=== PATIENT | male | born 1990 ===

== ENCOUNTER 2023-06-20 18:02 | Inpatient (IN) | payer OTHER ==
[2023-06-20 20:54] LABS: BASOPHILS % (AUTO) 0.4 % (0.0-2.0); EOSINOPHILS % (AUTO) 0.5 % (1.0-6.0); HEMATOCRIT 40.4 % (41-53); HEMOGLOBIN 13.5 g/dL (13.5-17.5); LYMPHOCYTES # (AUTO) 2.2 K/uL (1.0-4.8); LYMPHOCYTES % (AUTO) 22.9 % (22.0-44.0); MEAN CORPUSCULAR HEMOGLOBIN 29.1 pg (26.0-34.0); MEAN CORPUSCULAR HGB CONC 33.4 G/dL (31.0-37.0); MEAN CORPUSCULAR VOLUME 87 fL (80-100); MONOCYTES # (AUTO) 0.6 K/uL (0.1-1.0); MONOCYTES % (AUTO) 6.6 % (2.0-9.0); NEUTROPHILS # (AUTO) 6.5 K/uL (1.8-7.7); NEUTROPHILS % (AUTO) 69.6 % (40.0-70.0); PLATELET COUNT (AUTO) 307 K/uL (150-450); RED BLOOD CELL COUNT(AUTO) 4.63 MIL/uL (4.50-5.90); RED CELL DISTRIBUTION WIDTH 13.9 % (11.5-14.5); WHITE BLOOD COUNT (AUTO) 9.4 K/uL (4.5-11.0)
[2023-06-20 21:05] LABS: ANION GAP 7 mmol/L (8-16); CALCIUM, TOTAL 8.6 mg/dL (8.8-10.5); CARBON DIOXIDE 29 mmol/L (22-29); CHLORIDE 102 mmol/L (98-107); CREATININE 0.67 mg/dL (0.60-1.30); GLOMERULAR FILTR. RATE CALC > 60 mL/min (>60); GLUCOSE,RANDOM 93 mg/dL (70-110); POTASSIUM 3.8 mmol/L (3.5-5.1); SODIUM SERUM 138 mmol/L (136-145); UREA NITROGEN, BLOOD 9 mg/dL (7-18)
[2023-06-20 21:11] LABS: ALANINE AMINOTRANSFERASE 74 U/L (12-78); ALBUMIN 3.4 g/dL (3.4-5.0); ALKALINE PHOSPHATASE 76 U/L (46-116); ASPARTATE AMINOTRANSFERASE 39 U/L (15-37); BILIRUBIN,TOTAL 0.8 mg/dL (0.1-1.0); TOTAL PROTEIN, SERUM 6.6 g/dL (6.4-8.2)
[2023-06-20] MEDS ORDERED: ONDANSETRON HCL 4 MG/2 ML VIAL IVP PRN (21:15)
[2023-06-20] MEDS ORDERED: NALOXONE HCL 1 MG/ML 2 ML SYRINGE IVP ONE (21:15)
[2023-06-20] MEDS ORDERED: NALOXONE HCL 1 MG/ML 2 ML SYRINGE IM ONE (22:30)
[2023-06-20] MEDS ORDERED: NALOXONE HCL 0.4 MG/ML VIAL IVP PRN (23:59)
[2023-06-21 00:20] VITALS: BP 107/68; PULSE 85; RESP 16; TEMP 98.7
[2023-06-21] MEDS: HEPARIN SODIUM,PORCINE 5,000 UNITS/ML VIAL SQ SCH ×4 (00:40→23:06)
[2023-06-21] MEDS: ACETAMINOPHEN 325 MG TABLET PO PRN ×2 (00:41→22:02)
[2023-06-21 04:20] VITALS: BP 124/68; PULSE 98; RESP 16; TEMP 98.4
[2023-06-21 06:16] LABS: BASOPHILS % (AUTO) 0.2 % (0.0-2.0); EOSINOPHILS % (AUTO) 0.2 % (1.0-6.0); HEMATOCRIT 42.4 % (41-53); HEMOGLOBIN 14.1 g/dL (13.5-17.5); LYMPHOCYTES # (AUTO) 1.7 K/uL (1.0-4.8); LYMPHOCYTES % (AUTO) 14.4 % (22.0-44.0); MEAN CORPUSCULAR HEMOGLOBIN 28.9 pg (26.0-34.0); MEAN CORPUSCULAR HGB CONC 33.2 G/dL (31.0-37.0); MEAN CORPUSCULAR VOLUME 87 fL (80-100); MONOCYTES # (AUTO) 0.5 K/uL (0.1-1.0); MONOCYTES % (AUTO) 4.5 % (2.0-9.0); NEUTROPHILS # (AUTO) 9.5 K/uL (1.8-7.7); NEUTROPHILS % (AUTO) 80.7 % (40.0-70.0); PLATELET COUNT (AUTO) 324 K/uL (150-450); RED BLOOD CELL COUNT(AUTO) 4.86 MIL/uL (4.50-5.90); RED CELL DISTRIBUTION WIDTH 14.2 % (11.5-14.5); WHITE BLOOD COUNT (AUTO) 11.8 K/uL (4.5-11.0)
[2023-06-21 06:29] LABS: ANION GAP 7 mmol/L (8-16); CALCIUM, TOTAL 9.1 mg/dL (8.8-10.5); CARBON DIOXIDE 27 mmol/L (22-29); CHLORIDE 101 mmol/L (98-107); CREATININE 0.64 mg/dL (0.60-1.30); GLOMERULAR FILTR. RATE CALC > 60 mL/min (>60); GLUCOSE,RANDOM 89 mg/dL (70-110); POTASSIUM 4.1 mmol/L (3.5-5.1); SODIUM SERUM 135 mmol/L (136-145); UREA NITROGEN, BLOOD 13 mg/dL (7-18)
[2023-06-21 07:45] VITALS: BP 112/66; PULSE 94; RESP 18; TEMP 99.1
[2023-06-21] MEDS: DOCUSATE SODIUM 100 MG CAPSULE PO SCH ×2 (08:30→22:02)
[2023-06-21 20:15] VITALS: BP 101/56; PULSE 85; RESP 16; TEMP 99.1
[2023-06-21 23:17] LABS: ALCOHOL, URINE DRUG SCREEN NEGATIVE (NEGATIVE); AMPHET/METH SCREEN,URINE POSITIVE (NEGATIVE); BARBITURATE SCREEN, URINE NEGATIVE (NEGATIVE); BENZODIAZEPINES SCREEN,URINE NEGATIVE (NEGATIVE); CANNABINOID SCREEN,URINE POSITIVE (NEGATIVE); COCAINE SCREEN,URINE NEGATIVE (NEGATIVE); METHADONE SCREEN, URINE NEGATIVE (NEGATIVE); OPIATE SCREEN,URINE NEGATIVE (NEGATIVE); PHENCYCLIDINE SCREEN,URINE NEGATIVE (NEGATIVE)
[2023-06-22 04:25] VITALS: BP 103/68; PULSE 61; RESP 18; TEMP 97.8
[2023-06-22] MEDS: HEPARIN SODIUM,PORCINE 5,000 UNITS/ML VIAL SQ SCH ×3 (07:43→23:25)
[2023-06-22] MEDS: DOCUSATE SODIUM 100 MG CAPSULE PO SCH ×2 (07:43→22:04)
[2023-06-22 08:02] VITALS: BP 108/76; PULSE 82; RESP 20; TEMP 98.4
[2023-06-22 15:30] VITALS: BP 100/64; PULSE 84; RESP 20; TEMP 98.2
[2023-06-22 19:11] VITALS: BP 114/69; PULSE 89; RESP 20; TEMP 98.2
[2023-06-23 04:21] VITALS: BP 121/64; PULSE 64; RESP 18; TEMP 97.7
[2023-06-23] MEDS: ACETAMINOPHEN 325 MG TABLET PO PRN ×2 (04:30→16:33)
[2023-06-23] MEDS: HEPARIN SODIUM,PORCINE 5,000 UNITS/ML VIAL SQ SCH ×2 (08:27→16:22)
[2023-06-23] MEDS: DOCUSATE SODIUM 100 MG CAPSULE PO SCH (08:31)
[2023-06-23 09:06] VITALS: BP 108/70; PULSE 80; RESP 19; TEMP 99.1
== END 2023-06-23 18:55 | DRG 917 ==
LOC: EMS 18:02 → 6S 23:22
PROVIDERS: ADMIT Internal Medicine; ATTEND Internal Medicine
DX: T50.901A Poisoning by unspecified drugs, medicaments and biological substances, accidental (unintentional), initial encounter (principal); G92.9 Unspecified toxic encephalopathy; F11.13 Opioid abuse with withdrawal; F19.10 Other psychoactive substance abuse, uncomplicated; F17.200 Nicotine dependence, unspecified, uncomplicated; R74.8 Abnormal levels of other serum enzymes; F17.210 Nicotine dependence, cigarettes, uncomplicated; Y92.39 Other specified sports and athletic area as the place of occurrence of the external cause
CPT/HCPCS: 80048; 80053; 80307; 83735; 85025; 99285; J1644; J2310